=== PATIENT | female | born 1945 | race Caucasian/White ===

== ENCOUNTER 2019-03-05 03:06 | Emergency (ER) | payer MEDICARE ==
[~2019-03-05] VITALS: Ht 165.1 cm; Wt 56.5 kg
[2019-03-05 03:11] VITALS: BP 145/99
--- NOTE | 2019-03-05 03:34 | NUR ---
BLADDER SCANER RECORDED 60 ML FLUID IN THE BLADDER
[2019-03-05] MEDS ORDERED: IBAN150T15 PO (03:35)
[2019-03-05] MEDS ORDERED: ESOM40CA PO (03:35)
[2019-03-05] MEDS ORDERED: CELE200C PO (03:35)
--- NOTE | 2019-03-05 03:40 | NUR ---
Urine specimen collected and sent, pt reports that she feels better after voiding, urine is clear.
[2019-03-05 03:52] LABS: MICROSCOPIC AUTO
[2019-03-05 03:54] LABS: CULTURE INDICATED? YES
[2019-03-05] MEDS ORDERED: CEFDINIR 300 MG CAPSULE ONE (04:10)
[2019-03-05] MEDS ORDERED: CEFDINIR 300 MG CAPSULE PO ONE (04:30)
== END 2019-03-05 04:51 | disposition home or self-care (01) ==
LOC: ED 04:00
DX: N30.00 Acute cystitis without hematuria (principal); E78.5 Hyperlipidemia, unspecified; M81.0 Age-related osteoporosis without current pathological fracture
CPT/HCPCS: 81001; 87077; 87086; 87186; 99283

== ENCOUNTER 2019-07-04 14:14 | Inpatient (IN) | payer MEDICARE ==
[~2019-07-04] VITALS: Ht 167.6 cm; Wt 58.4 kg
[~2019-07-04 14:14] MED LIST: CELE200C PO; ESOM40CA PO; IBAN150T15 PO
[2019-07-04] MEDS ORDERED: SODIUM CHLORIDE 0.9% 1,000 ML IV ONE (14:29)
[2019-07-04] MEDS ORDERED: ONDANSETRON 2MG/ML, 2ML IVPush ONE (14:30)
[2019-07-04] MEDS ORDERED: SODIUM CHLORIDE FLUSH 10ML SYR IVF ONE (14:30)
[2019-07-04] MEDS ORDERED: KETOROLAC 30 MG/1 ML ONE (14:45)
[2019-07-04] MEDS ORDERED: ONDANSETRON 2MG/ML, 2ML ONE (14:45)
[2019-07-04 14:47] LABS: BASOPHILS # (AUTO) 0.01 x10^3/uL (0-0.1); BASOPHILS % (AUTO) 0 % (0-1); EOSINOPHILS # (AUTO) 0.17 x10^3/uL (0-0.4); EOSINOPHILS % (AUTO) 1 % (1-7); LYMPHOCYTES # (AUTO) 0.68 x10^3/uL (1-3.4); LYMPHOCYTES % (AUTO) 4 % (22-44); MD NO; MEAN CORPUSCULAR HEMOGLOBIN 33.5 pg (27.0-34.8); MEAN CORPUSCULAR HGB CONC 32.8 g/dL (32.4-35.8); MEAN CORPUSCULAR VOLUME 102.2 fL (80-100); MEAN PLATELET VOLUME 8.3 fL (7.4-10.4); MONOCYTES % (AUTO) 2 % (2-9); NEUTROPHILS # (AUTO) 15.74 x10^3/uL (1.8-6.8); NEUTROPHILS % (AUTO) 93 % (42-75); PLATELET COUNT 202 x10^3/uL (130-400); RED CELL DISTRIBUTION WIDTH 13.1 % (9.6-15.2)
[2019-07-04 14:56] LABS: ALBUMIN 3.9 g/dL (3.4-5.0); ANION GAP 7 mmol/L (5-15); CALCIUM 9.3 mg/dL (8.5-10.1); CHLORIDE 110 mmol/L (98-107)
--- NOTE | 2019-07-04 14:58 | NUR ---
PT TO ROOM 21 W/ FAMILY FOR C/O N/V/D X 5 DAYS WELL JOSE. STATES SHE HAS HAD 4 BM'S TODAY. AWARE OF NEED FOR STOOL SAMPLE. PT ALSO STATES SHE HAS ABD PAIN THROUGHOUT AT TIMES. CURRENTLY DENIES ABD PAIN. NO PAIN ON PALPATION. PT HAS FULL ROM OF NECK. PT RESTING ON GURNEY. NADN. VSS.
[2019-07-04 14:59] LABS: ALANINE AMINOTRANSFERASE 43 U/L (12-78); ALKALINE PHOSPHATASE 51 U/L (45-117); BILIRUBIN,TOTAL 0.7 mg/dL (0.2-1.0); TOTAL PROTEIN 8.1 g/dL (6.4-8.2)
[2019-07-04] MEDS ORDERED: KETOROLAC 30 MG/1 ML IVPush ONE (15:00)
--- NOTE | 2019-07-04 15:02 | NUR ---
REPORT FROM FROM TASK RN, CATHIE, ASSUMED CARE OF PATIENT AT THIS TIME.
[2019-07-04 15:15] LABS: RAPID INFLUENZA A Negative (Negative); RAPID INFLUENZA B Negative (Negative)
--- NOTE | 2019-07-04 16:22 | NUR ---
PATIENT TO BEDSIDE COMMODE, STAND-BY ASSIST. UA AND STOOL COLLECTED AND WALKED TO LAB. PATIENT BACK TO BED, [id number], NEW ORDERS FOR CT. PATIENT/FAMILY UPDATED ON POC. AWAITING RESULTS.
[2019-07-04 16:49] LABS: MICROSCOPIC NOT IND
[2019-07-04] MEDS ORDERED: OMNIPAQUE 350 MG/ML, 100ML BOTTLE ONE (16:51)
[2019-07-04 16:53] LABS: CULTURE INDICATED? NO
[2019-07-04 16:56] LABS: CLOSTRIDIUM DIFFICILE ANTIGEN NEGATIVE; CLOSTRIDIUM DIFFICILE TOXIN NEGATIVE (Negative)
--- NOTE | 2019-07-04 17:04 | NUR ---
PATIENT SITTING COMFORTABLY IN [facility]. VS UPDATED IN CHART, AWAITING CT RESULTS. NO NEEDS AT THIS TIME.
--- NOTE | 2019-07-04 17:19 | NUR ---
RESULTS BACK, CHART UP FOR RECHECK.
--- NOTE | 2019-07-04 18:03 | NUR ---
PATIENT SITTING IN [facility]. PATIENT TO BE ADMITTED, AWAITING ADMIT ORDER. VS UPDATED IN CHART.
[2019-07-04] MEDS ORDERED: AMPICILLIN/SULBACTAM 3 GM in SODIUM CHLORIDE 0.9% 100 ML IV ONE (18:30)
[2019-07-04] MEDS ORDERED: METRONIDAZOLE PMX 500MG/100ML 100 ML IV ONE (18:30)
--- NOTE | 2019-07-04 18:32 | NUR ---
SPOKE TO DR CHO REGARDING NEED FOR BLOOD CULTURES PRIOR TO ABX, BLOOD CULTURES TO BE ORDERED. AWAITING BED ASSIGNMENT.
--- NOTE | 2019-07-04 18:45 | NUR ---
BLOOD CULTURES X 2 DRAWN PRIOR TO ABX, ABX ADMINISTERED AT THIS TIME. AWAITING REPORT. PATIENT SITTING IN [facility].
--- NOTE | 2019-07-04 18:52 | NUR ---
REPORT TO RONIT BARNEY.
--- NOTE | 2019-07-04 19:00 | NUR ---
PATIENT TRANSFERRED/ADMITTED TO HOSPITAL BED UPSTAIRS. [facility].
[2019-07-04] MEDS: METRONIDAZOLE PMX 500MG/100ML 100 ML IV SCH (20:18)
[2019-07-04] MEDS: HEPARIN 5,000 UNITS/ML, 1ML SQ SCH (20:18)
[2019-07-04] MEDS: SODIUM CHLORIDE 0.9% 1,000 ML IV SCH (20:18)
[2019-07-04 20:35] VITALS: BP 105/72
[2019-07-04] MEDS: ACETAMINOPHEN 325 MG TABLET PO PRN (20:55)
[2019-07-04] MEDS: CEFTRIAXONE PMX 1GM/50ML 50 ML IV SCH (22:09)
[2019-07-05 00:48] VITALS: BP 97/68
[2019-07-05] MEDS: METRONIDAZOLE PMX 500MG/100ML 100 ML IV SCH ×3 (04:20→19:53)
[2019-07-05] MEDS: HEPARIN 5,000 UNITS/ML, 1ML SQ SCH ×3 (04:21→19:53)
[2019-07-05 05:37] LABS: BASOPHILS # (AUTO) 0.03 x10^3/uL (0-0.1); BASOPHILS % (AUTO) 0 % (0-1); EOSINOPHILS # (AUTO) 0.24 x10^3/uL (0-0.4); EOSINOPHILS % (AUTO) 4 % (1-7); LYMPHOCYTES # (AUTO) 1.63 x10^3/uL (1-3.4); LYMPHOCYTES % (AUTO) 25 % (22-44); MD NO; MEAN CORPUSCULAR HEMOGLOBIN 33.5 pg (27.0-34.8); MEAN CORPUSCULAR HGB CONC 32.4 g/dL (32.4-35.8); MEAN CORPUSCULAR VOLUME 103.2 fL (80-100); MEAN PLATELET VOLUME 8.8 fL (7.4-10.4); MONOCYTES # (AUTO) 0.35 x10^3/uL (0.2-0.8); MONOCYTES % (AUTO) 5 % (2-9); NEUTROPHILS # (AUTO) 4.35 x10^3/uL (1.8-6.8); NEUTROPHILS % (AUTO) 66 % (42-75); PLATELET COUNT 164 x10^3/uL (130-400); RED BLOOD COUNT 3.72 x10^6/uL (3.82-5.3); RED CELL DISTRIBUTION WIDTH 13.3 % (9.6-15.2)
[2019-07-05 05:43] LABS: ALBUMIN 2.9 g/dL (3.4-5.0); ANION GAP 6 mmol/L (5-15); CALCIUM 7.8 mg/dL (8.5-10.1); CHLORIDE 117 mmol/L (98-107)
[2019-07-05 05:55] LABS: ALANINE AMINOTRANSFERASE 30 U/L (12-78); ALKALINE PHOSPHATASE 39 U/L (45-117); BILIRUBIN,TOTAL 0.8 mg/dL (0.2-1.0); CREATININE 0.46 mg/dL (0.55-1.02); TOTAL PROTEIN 5.9 g/dL (6.4-8.2)
[2019-07-05] MEDS: ACETAMINOPHEN 325 MG TABLET PO PRN ×2 (06:14→15:54)
[2019-07-05] MEDS: PANTOPROZOLE 40MG TABLET PO SCH (07:34)
[2019-07-05] MEDS: SODIUM CHLORIDE 0.9% 1,000 ML IV SCH ×2 (07:34→15:52)
[2019-07-05 07:39] VITALS: BP 100/65
[2019-07-05] MEDS ORDERED: TEMPLATE NON-FORMULARY MED. (Ibandronate Sodium** (Boniva**) 1 TAB) PO SCH (09:00)
[2019-07-05 12:33] VITALS: BP 109/71
[2019-07-05] MEDS: DEXTROSE 5% 1,000 ML IV SCH (17:14)
[2019-07-05] MEDS ORDERED: ASA/APAP/ CAFFEINE TABLET ONE (18:14)
[2019-07-05] MEDS ORDERED: ASA/APAP/ CAFFEINE TABLET PO PRN (18:30)
[2019-07-05 19:16] VITALS: BP 142/87
[2019-07-05] MEDS: CEFTRIAXONE PMX 1GM/50ML 50 ML IV SCH (21:35)
[2019-07-05] MEDS: ONDANSETRON 2MG/ML, 2ML IVPush PRN (21:40)
[2019-07-06] MEDS ORDERED: PROMETHAZINE 25 MG/ML, 1ML IM ONE (01:00)
[2019-07-06 02:07] VITALS: BP 112/70
[2019-07-06] MEDS: METRONIDAZOLE PMX 500MG/100ML 100 ML IV SCH ×3 (03:55→20:25)
[2019-07-06] MEDS: HEPARIN 5,000 UNITS/ML, 1ML SQ SCH ×3 (03:55→20:25)
[2019-07-06 05:21] LABS: BASOPHILS # (AUTO) 0.01 x10^3/uL (0-0.1); BASOPHILS % (AUTO) 0 % (0-1); EOSINOPHILS # (AUTO) 0.05 x10^3/uL (0-0.4); EOSINOPHILS % (AUTO) 1 % (1-7); LYMPHOCYTES # (AUTO) 1.08 x10^3/uL (1-3.4); LYMPHOCYTES % (AUTO) 23 % (22-44); MD NO; MEAN CORPUSCULAR HEMOGLOBIN 33.5 pg (27.0-34.8); MEAN CORPUSCULAR HGB CONC 32.6 g/dL (32.4-35.8); MEAN CORPUSCULAR VOLUME 102.8 fL (80-100); MEAN PLATELET VOLUME 8.5 fL (7.4-10.4); MONOCYTES # (AUTO) 0.23 x10^3/uL (0.2-0.8); MONOCYTES % (AUTO) 5 % (2-9); NEUTROPHILS # (AUTO) 3.42 x10^3/uL (1.8-6.8); NEUTROPHILS % (AUTO) 71 % (42-75); PLATELET COUNT 156 x10^3/uL (130-400); RED BLOOD COUNT 3.69 x10^6/uL (3.82-5.3); RED CELL DISTRIBUTION WIDTH 12.9 % (9.6-15.2)
[2019-07-06 05:28] LABS: ANION GAP 8 mmol/L (5-15); CALCIUM 7.5 mg/dL (8.5-10.1); CHLORIDE 105 mmol/L (98-107)
[2019-07-06 05:42] LABS: ALANINE AMINOTRANSFERASE 28 U/L (12-78); ALKALINE PHOSPHATASE 37 U/L (45-117); BILIRUBIN,TOTAL 0.5 mg/dL (0.2-1.0); CREATININE 0.41 mg/dL (0.55-1.02); TOTAL PROTEIN 6.2 g/dL (6.4-8.2)
[2019-07-06] MEDS: DEXTROSE 5% 1,000 ML IV SCH (08:00)
[2019-07-06] MEDS: PANTOPROZOLE 40MG TABLET PO SCH (08:00)
[2019-07-06 08:28] VITALS: BP 112/73
[2019-07-06] MEDS ORDERED: SODIUM CHLORIDE 0.9% 1,000 ML IV SCH (10:00)
[2019-07-06] MEDS ORDERED: POTASSIUM CHLORIDE 40 MEQ in SODIUM CHLORIDE 0.9% 500 ML IV ONE ×2 (10:00→15:00)
[2019-07-06] MEDS ORDERED: MAGNESIUM SULFATE 4 GM in SODIUM CHLORIDE 0.9% 100 ML IV ONE (13:00)
[2019-07-06] MEDS ORDERED: POTASSIUM PHOSPHATE 44 MEQ in SODIUM CHLORIDE 0.9% 500 ML IV SCH (13:00)
[2019-07-06] MEDS ORDERED: MAGNESIUM SULFATE PMX 4GM/100M 100 ML IV ONE (13:00)
[2019-07-06 13:12] VITALS: BP 124/77
[2019-07-06 18:53] VITALS: BP 133/84
[2019-07-06] MEDS: ONDANSETRON 2MG/ML, 2ML IVPush PRN (19:23)
[2019-07-06] MEDS: CEFTRIAXONE PMX 1GM/50ML 50 ML IV SCH (21:36)
[2019-07-06] MEDS: SODIUM CHLORIDE 0.9% 1,000 ML IV SCH (22:17)
[2019-07-07 00:38] VITALS: BP 135/81
[2019-07-07] MEDS: HEPARIN 5,000 UNITS/ML, 1ML SQ SCH ×3 (05:03→20:01)
[2019-07-07] MEDS: METRONIDAZOLE PMX 500MG/100ML 100 ML IV SCH ×3 (05:03→23:58)
[2019-07-07 07:48] LABS: ANION GAP 8 mmol/L (5-15); CALCIUM 7.7 mg/dL (8.5-10.1); CHLORIDE 111 mmol/L (98-107); CREATININE 0.33 mg/dL (0.55-1.02)
[2019-07-07] MEDS: SODIUM CHLORIDE 0.9% 1,000 ML IV SCH ×2 (08:00→15:52)
[2019-07-07 08:02] VITALS: BP 112/72
[2019-07-07] MEDS ORDERED: POTASSIUM PHOSPHATE 44 MEQ in SODIUM CHLORIDE 0.9% 500 ML IV ONE (08:30)
[2019-07-07] MEDS: PANTOPROZOLE 40MG TABLET PO SCH (09:08)
[2019-07-07 13:57] VITALS: BP 114/74
[2019-07-07] MEDS ORDERED: POTASSIUM PHOSPHATE 22 MEQ in SODIUM CHLORIDE 0.9% 500 ML IV ONE (17:00)
[2019-07-07] MEDS: MAGNESIUM SULFATE PMX 2GM/50ML 50 ML IV ONE ×2 (17:20→18:27)
[2019-07-07] MEDS: POTASSIUM CHLORIDE 20 MEQ TAB.ER.PRT PO SCH ×2 (18:27→20:01)
[2019-07-07 18:45] VITALS: BP 139/90
[2019-07-07] MEDS: ONDANSETRON 2MG/ML, 2ML IVPush PRN (20:11)
[2019-07-07] MEDS: CEFTRIAXONE PMX 1GM/50ML 50 ML IV SCH (20:57)
[2019-07-08 00:27] VITALS: BP 120/80
[2019-07-08] MEDS: ONDANSETRON 2MG/ML, 2ML IVPush PRN (00:43)
[2019-07-08] MEDS: HEPARIN 5,000 UNITS/ML, 1ML SQ SCH (04:07)
[2019-07-08] MEDS: SODIUM CHLORIDE 0.9% 1,000 ML IV SCH (04:08)
[2019-07-08 05:58] LABS: ANION GAP 6 mmol/L (5-15); CALCIUM 8.3 mg/dL (8.5-10.1); CHLORIDE 110 mmol/L (98-107)
[2019-07-08 07:27] VITALS: BP 111/72
[2019-07-08] MEDS: PANTOPROZOLE 40MG TABLET PO SCH (07:42)
[2019-07-08] MEDS: METRONIDAZOLE PMX 500MG/100ML 100 ML IV SCH (07:42)
[2019-07-08] MEDS ORDERED: METR500T PO (08:56)
[2019-07-08] MEDS ORDERED: LACT1TAB13 PO (08:56)
[2019-07-08] MEDS ORDERED: ONDA4TAB13 SL (08:56)
[2019-07-08] MEDS ORDERED: CEFD300C37 PO (08:56)
[2019-07-08] MEDS ORDERED: metroNIDAZOLE 500 MG TABLET PO SCH (09:00)
[2019-07-08] MEDS ORDERED: CEFDINIR 300 MG CAPSULE PO SCH (09:00)
== END 2019-07-08 12:14 | disposition home or self-care (01) | DRG 871 ==
LOC: ED 17:57 → EDIP 18:09 → 3N 19:01 → DCLOUNGE 07-08 12:04
PROVIDERS: ADMIT Family Medicine; ATTEND Internal Medicine
DX: A41.9 Sepsis, unspecified organism (principal); J98.59 Other diseases of mediastinum, not elsewhere classified; A09 Infectious gastroenteritis and colitis, unspecified; D75.89 Other specified diseases of blood and blood-forming organs; E78.5 Hyperlipidemia, unspecified; E83.39 Other disorders of phosphorus metabolism; E83.42 Hypomagnesemia; E87.6 Hypokalemia; Z87.891 Personal history of nicotine dependence; M81.0 Age-related osteoporosis without current pathological fracture
CPT/HCPCS: 36415; 74177; 80048; 80053; 81003; 82607; 82962; 83605; 83690; 83735; 84100; 84443; 85025; 87040; 87046; 87324; 87400; 89055; 93005; 96361; 96374; 96375; 99285; G0378; J0295; J0696; J1644; J1885; J2405; J2550; J3480; J7070; Q9967; J3475; J7030; J7040

== ENCOUNTER 2019-07-24 20:37 | Emergency (ER) ==
[~2019-07-24] VITALS: Ht 165.1 cm; Wt 55.9 kg
[~2019-07-24 20:37] MED LIST changes: +CEFD300C37 PO; +LACT1TAB13 PO; +METR500T PO; +ONDA4TAB13 SL
--- NOTE | 2019-07-24 21:03 | NUR ---
RN to bedside, patient in gown in room. Daughter at bedside translating for patient relates that patient needs to use the bathroom. Given abdominal pain reviewed clean catch instructions. Patient's daughter verbalized understanding. Patient ambulated steadily to bathroom under own power. Will assess on return to bathroom.
[2019-07-24] MEDS ORDERED: MAALOX/HYOSCYAMINE/LIDOCAINE 45 ML BTL PO ONE (21:30)
[2019-07-24] MEDS ORDERED: FAMOTIDINE 20 MG/2 ML IV ONE (21:30)
[2019-07-24] MEDS ORDERED: SODIUM CHLORIDE FLUSH 10ML SYR IVF ONE (21:30)
[2019-07-24] MEDS ORDERED: MAALOX/HYOSCYAMINE/LIDOCAINE 45 ML BTL ONE (21:35)
[2019-07-24] MEDS ORDERED: FAMOTIDINE 20 MG TABLET ONE (21:35)
[2019-07-24 21:45] LABS: BASOPHILS # (AUTO) 0.03 x10^3/uL (0-0.1); BASOPHILS % (AUTO) 1 % (0-1); EOSINOPHILS # (AUTO) 0.15 x10^3/uL (0-0.4); EOSINOPHILS % (AUTO) 2 % (1-7); LYMPHOCYTES # (AUTO) 2.12 x10^3/uL (1-3.4); LYMPHOCYTES % (AUTO) 35 % (22-44); MD NO; MEAN CORPUSCULAR HEMOGLOBIN 33.9 pg (27.0-34.8); MEAN CORPUSCULAR VOLUME 102.7 fL (80-100); MEAN PLATELET VOLUME 7.8 fL (7.4-10.4); MONOCYTES # (AUTO) 0.46 x10^3/uL (0.2-0.8); MONOCYTES % (AUTO) 8 % (2-9); NEUTROPHILS # (AUTO) 3.27 x10^3/uL (1.8-6.8); NEUTROPHILS % (AUTO) 54 % (42-75); PLATELET COUNT 244 x10^3/uL (130-400); RED BLOOD COUNT 4.18 x10^6/uL (3.82-5.3)
[2019-07-24 21:58] LABS: ALANINE AMINOTRANSFERASE 44 U/L (12-78); ALBUMIN 3.7 g/dL (3.4-5.0); ANION GAP 5 mmol/L (5-15); CALCIUM 9.2 mg/dL (8.5-10.1); CHLORIDE 107 mmol/L (98-107); CREATININE 0.61 mg/dL (0.55-1.02)
[2019-07-24 22:01] LABS: ALKALINE PHOSPHATASE 43 U/L (45-117); BILIRUBIN,TOTAL 0.4 mg/dL (0.2-1.0); TOTAL PROTEIN 7.9 g/dL (6.4-8.2)
[2019-07-25 00:04] VITALS: BP 149/98
[2019-07-25] MEDS ORDERED: RANI-467 PO (14:52)
[2019-07-25] MEDS ORDERED: FAMO-79 PO (14:52)
[2019-07-25] MEDS ORDERED: LANS15CA5 PO (14:52)
== END 2019-07-25 00:24 | disposition home or self-care (01) ==
LOC: ED 22:07
DX: R10.13 Epigastric pain (principal)
CPT/HCPCS: 36415; 76700; 80053; 83605; 83690; 85025; 93005; 99284

== ENCOUNTER 2019-07-25 14:04 | Inpatient (IN) | payer MEDICARE ==
[~2019-07-25] VITALS: Ht 157.5 cm; Wt 56.6 kg
[2019-07-25] MEDS ORDERED: SODIUM CHLORIDE FLUSH 10ML SYR IVF ONE ×2 (14:30→15:00)
--- NOTE | 2019-07-25 14:35 | NUR ---
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
--- NOTE | 2019-07-25 14:47 | NUR ---
PT HERE WITH C/O SEVERE EPIGASTRIC PAIN, STATES SHE WAS SEEN HERE LAST NIGHT FOR SAME THING. PT STATES SHE FELT OK AFTER SHE LEFT BUT THIS MORNING FELT WORSE. PT AAO X 4, ROOM AIR, DRESSED IN GOWN AND ATTACHED TO MONITOR. CALL LIGHT WITHIN REACH AND SIDERAIL X [address] MD AT BEDSIDE.
[2019-07-25] MEDS ORDERED: LANS15CA5 PO (14:52)
[2019-07-25] MEDS ORDERED: FAMO-79 PO (14:52)
[2019-07-25] MEDS ORDERED: RANI-467 PO (14:52)
--- NOTE | 2019-07-25 14:52 | NUR ---
MED REC COMPLETED.
[2019-07-25] MEDS ORDERED: SODIUM CHLORIDE 0.9% 1,000 ML IV ONE (14:56)
[2019-07-25] MEDS ORDERED: ONDANSETRON 2MG/ML, 2ML IVPush ONE (15:00)
[2019-07-25] MEDS ORDERED: MORPHINE SULFATE 4 MG/ML, 1ML IVPush PRN (15:00)
--- NOTE | 2019-07-25 15:07 | NUR ---
PT EDUCATED ON NPO STATUS AND NEED FOR BLOOD WORK, PT AGREEABLE AND LAB NOTIFIED.
--- NOTE | 2019-07-25 15:24 | NUR ---
PIV ESTABLISHED BY THIS RN. LAB AT BEDSIDE FOR LAB DRAW.
[2019-07-25] MEDS ORDERED: MORPHINE SULFATE 4 MG/ML, 1ML ONE (15:26)
[2019-07-25] MEDS ORDERED: ONDANSETRON 2MG/ML, 2ML ONE (15:26)
--- NOTE | 2019-07-25 15:27 | NUR ---
PT MEDICATED PER ORDERS.
[2019-07-25 15:28] LABS: BASOPHILS # (AUTO) 0.02 x10^3/uL (0-0.1); BASOPHILS % (AUTO) 0 % (0-1); EOSINOPHILS % (AUTO) 2 % (1-7); LYMPHOCYTES # (AUTO) 1.52 x10^3/uL (1-3.4); LYMPHOCYTES % (AUTO) 23 % (22-44); MD NO; MEAN CORPUSCULAR HEMOGLOBIN 33.6 pg (27.0-34.8); MEAN CORPUSCULAR HGB CONC 33.1 g/dL (32.4-35.8); MEAN CORPUSCULAR VOLUME 101.5 fL (80-100); MEAN PLATELET VOLUME 8.1 fL (7.4-10.4); MONOCYTES # (AUTO) 0.28 x10^3/uL (0.2-0.8); MONOCYTES % (AUTO) 4 % (2-9); NEUTROPHILS # (AUTO) 4.79 x10^3/uL (1.8-6.8); NEUTROPHILS % (AUTO) 71 % (42-75); PLATELET COUNT 213 x10^3/uL (130-400); RED BLOOD COUNT 4.55 x10^6/uL (3.82-5.3); RED CELL DISTRIBUTION WIDTH 14.2 % (9.6-15.2)
--- NOTE | 2019-07-25 15:28 | NUR ---
UA SENT TO LAB.
[2019-07-25 15:36] LABS: ALBUMIN 3.9 g/dL (3.4-5.0); ANION GAP 8 mmol/L (5-15); CALCIUM 9.2 mg/dL (8.5-10.1); CHLORIDE 108 mmol/L (98-107)
[2019-07-25 15:45] LABS: ALANINE AMINOTRANSFERASE 43 U/L (12-78); ALKALINE PHOSPHATASE 46 U/L (45-117); BILIRUBIN,TOTAL 0.7 mg/dL (0.2-1.0); CREATININE 0.54 mg/dL (0.55-1.02); TOTAL PROTEIN 7.9 g/dL (6.4-8.2)
[2019-07-25 16:02] LABS: MICROSCOPIC NOT IND
[2019-07-25 16:07] LABS: CULTURE INDICATED? NO
--- NOTE | 2019-07-25 16:37 | NUR ---
AT BEDSIDE FOR REASSESSMENT.
--- NOTE | 2019-07-25 17:28 | NUR ---
DR. PERALES AT BEDSIDE FOR ASSESSMENT.
--- NOTE | 2019-07-25 18:30 | NUR ---
THIS RN SPOKE WITH CT REGARDING PIV AND CT WITH CONTRAST, CT OK CURRENT PIV, PT TO ALSO DRINK ORAL CONTRAST.
--- NOTE | 2019-07-25 19:16 | NUR ---
PT TOLERATED ORAL CONTRAST. PT TAKEN TO CT.
[2019-07-25] MEDS ORDERED: OMNIPAQUE 350 MG/ML, 100ML BOTTLE ONE (19:44)
--- NOTE | 2019-07-25 19:51 | NUR ---
PT BACK FROM CT.
[2019-07-25] MEDS ORDERED: ONDANSETRON 2MG/ML, 2ML IVPush PRN (20:00)
--- NOTE | 2019-07-25 20:04 | NUR ---
DR. PERALES AT BEDSIDE FOR REASSESSMENT.
--- NOTE | 2019-07-25 20:08 | NUR ---
REPORT GIVEN TO RONIT CARDOSO. CARE TRANSFERRED AT THIS TIME.
--- NOTE | 2019-07-25 20:17 | NUR ---
report from RONIT Murry. pt resting in room. no needs expressed. all results back at this time. chart up for recheck.
[2019-07-25] MEDS ORDERED: FAMOTIDINE 20 MG/2 ML ONE (20:44)
[2019-07-25] MEDS: FAMOTIDINE 20 MG/2 ML IVPush SCH (20:50)
--- NOTE | 2019-07-25 20:55 | NUR ---
pt medicated per oct. vss. plan to admit. awaiting room assignment.
--- NOTE | 2019-07-25 21:18 | NUR ---
REPORT TO RONIT GRULLON. PT READY FOR TRANSPORT.
[2019-07-25 21:45] VITALS: BP 146/90
[2019-07-25] MEDS: D5%-0.45NACL+KCL 20MEQ 1,000 ML IV SCH (22:54)
[2019-07-26 02:02] VITALS: BP 109/63
[2019-07-26 05:16] LABS: CHLORIDE 110 mmol/L (98-107)
[2019-07-26 05:22] LABS: ANION GAP 5 mmol/L (5-15); CALCIUM 8.5 mg/dL (8.5-10.1); CREATININE 0.52 mg/dL (0.55-1.02)
[2019-07-26 05:25] LABS: BASOPHILS # (AUTO) 0.01 x10^3/uL (0-0.1); BASOPHILS % (AUTO) 0 % (0-1); EOSINOPHILS # (AUTO) 0.12 x10^3/uL (0-0.4); EOSINOPHILS % (AUTO) 2 % (1-7); LYMPHOCYTES # (AUTO) 1.69 x10^3/uL (1-3.4); LYMPHOCYTES % (AUTO) 35 % (22-44); MD NO; MEAN CORPUSCULAR HEMOGLOBIN 33.6 pg (27.0-34.8); MEAN CORPUSCULAR HGB CONC 33.1 g/dL (32.4-35.8); MEAN CORPUSCULAR VOLUME 101.6 fL (80-100); MEAN PLATELET VOLUME 8.2 fL (7.4-10.4); MONOCYTES # (AUTO) 0.31 x10^3/uL (0.2-0.8); MONOCYTES % (AUTO) 6 % (2-9); NEUTROPHILS # (AUTO) 2.77 x10^3/uL (1.8-6.8); NEUTROPHILS % (AUTO) 57 % (42-75); PLATELET COUNT 197 x10^3/uL (130-400); RED BLOOD COUNT 3.76 x10^6/uL (3.82-5.3); RED CELL DISTRIBUTION WIDTH 13.9 % (9.6-15.2)
[2019-07-26] MEDS: D5%-0.45NACL+KCL 20MEQ 1,000 ML IV SCH ×3 (05:28→22:48)
[2019-07-26 06:45] VITALS: BP 100/62
[2019-07-26] MEDS: FAMOTIDINE 20 MG/2 ML IVPush SCH (08:07)
[2019-07-26] MEDS ORDERED: SUCCINYLCHOLINE 20 MG/ML, 10ML ONE (12:21)
[2019-07-26] MEDS ORDERED: PROPOFOL 10 MG/ML, 20ML ONE (12:21)
[2019-07-26] MEDS ORDERED: HYDROmorphone 2 MG/ML, 1ML IVPush PRN (13:00)
[2019-07-26] MEDS ORDERED: MEPERIDINE/PF 25MG/0.5ML IVPush PRN (13:00)
[2019-07-26] MEDS ORDERED: ACETAMINOPHEN 325 MG TABLET PO PRN (13:00)
[2019-07-26] MEDS ORDERED: KETOROLAC 30 MG/1 ML IV PRN (13:00)
[2019-07-26] MEDS ORDERED: DIAZEPAM 5 MG/ML, 2ML IVPush PRN (13:00)
[2019-07-26] MEDS ORDERED: FENTANYL PF 100 MCG/2ML IV PRN (13:00)
[2019-07-26] MEDS ORDERED: ALBUTEROL SULFATE 2.5 MG/3 ML NPPB PRN (13:00)
[2019-07-26] MEDS ORDERED: OXYcodone 5 MG/5 ML ORAL.SOL UDC PO PRN (13:00)
[2019-07-26] MEDS ORDERED: LABETALOL 5MG/ML, 20ML IV PRN (13:00)
[2019-07-26] MEDS ORDERED: hydrALAzine 20 MG/ML, 1ML IV PRN (13:00)
[2019-07-26] MEDS ORDERED: PROMETHAZINE 25 MG/ML, 1ML IV PRN (13:00)
[2019-07-26 14:10] VITALS: BP 155/89
[2019-07-26 19:33] VITALS: BP 144/90
[2019-07-26 23:39] VITALS: BP 132/86
[2019-07-27] MEDS: morphine SULFATE 10 MG/ML, 1ML IVPush PRN ×2 (00:51→02:35)
[2019-07-27 03:25] LABS: CLOSTRIDIUM DIFFICILE ANTIGEN POSITIVE; CLOSTRIDIUM DIFFICILE TOXIN NEGATIVE (Negative)
[2019-07-27 04:00] VITALS: BP 137/81
[2019-07-27] MEDS: D5%-0.45NACL+KCL 20MEQ 1,000 ML IV SCH (05:26)
[2019-07-27 07:25] VITALS: BP 154/86
[2019-07-27] MEDS: FAMOTIDINE 20 MG/2 ML IVPush SCH (08:18)
[2019-07-27] MEDS ORDERED: OXYcodone 5 MG/5 ML ORAL.SOL UDC PO PRN (09:00)
[2019-07-27 09:01] VITALS: BP 111/77
[2019-07-27 12:46] VITALS: BP 124/85
[2019-07-27] MEDS: OXYcodone 5 MG/5 ML ORAL.SOL UDC PO PRN ×3 (16:38→23:07)
[2019-07-27 20:16] VITALS: BP 116/81
[2019-07-28 04:00] VITALS: BP 108/68
[2019-07-28] MEDS: FAMOTIDINE 20 MG/2 ML IVPush SCH (07:55)
[2019-07-28 08:32] VITALS: BP 108/77
[2019-07-28] MEDS: VANCOMYCIN 50 MG/ML ORAL SUSP PO SCH ×3 (12:15→21:56)
[2019-07-28 14:37] VITALS: BP 112/80
[2019-07-28 20:08] VITALS: BP 112/80
[2019-07-28] MEDS: OXYcodone 5 MG/5 ML ORAL.SOL UDC PO PRN (20:36)
[2019-07-29 03:23] VITALS: BP 98/68
[2019-07-29] MEDS ORDERED: FAMOTIDINE 20 MG TABLET PO SCH (09:00)
[2019-07-29] MEDS: VANCOMYCIN 50 MG/ML ORAL SUSP PO SCH (09:04)
[2019-07-29 09:22] VITALS: BP 118/82
[2019-07-29] MEDS ORDERED: VANC125C11 PO (10:06)
== END 2019-07-29 10:21 | disposition home or self-care (01) | DRG 920 ==
LOC: ED 17:47 → EDIP 19:58 → 4NE 21:30
PROVIDERS: ADMIT Family Medicine; ATTEND Family Medicine
PROC: 0DBE8ZX Excision of Large Intestine, Via Natural or Artificial Opening Endoscopic, Diagnostic (ICD-10-PCS; 2019-07-26)
PROC: 0DBE8ZZ Excision of Large Intestine, Via Natural or Artificial Opening Endoscopic (ICD-10-PCS; principal; 2019-07-26 12:21)
DX: T85.79XA Infection and inflammatory reaction due to other internal prosthetic devices, implants and grafts, initial encounter (principal); K56.699 Other intestinal obstruction unspecified as to partial versus complete obstruction; A04.72 Enterocolitis due to Clostridium difficile, not specified as recurrent; K44.9 Diaphragmatic hernia without obstruction or gangrene; E78.5 Hyperlipidemia, unspecified; K29.00 Acute gastritis without bleeding; M81.0 Age-related osteoporosis without current pathological fracture; Z91.5 Personal history of self-harm; Y83.2 Surgical operation with anastomosis, bypass or graft as the cause of abnormal reaction of the patient, or of later complication, without mention of misadventure at the time of the procedure; Y92.89 Other specified places as the place of occurrence of the external cause
CPT/HCPCS: 36415; 71260; 74177; 80048; 80053; 81003; 83690; 85025; 87324; 87493; 88305; 93005; 96361; 96374; 96375; 99285; G0378; J2405; J2704; J3370; Q9967; J0330; J2270; J3480; J3490; J7030

== ENCOUNTER → 2019-08-09 | Outpatient (CLI) | payer MEDICARE ==
[~2019-08-09] MED LIST changes: +FAMO-79 PO; +LANS15CA5 PO; +RANI-467 PO; +VANC125C11 PO
== END | disposition home or self-care (01) ==
LOC: CFH 12:19
PROVIDERS: ATTEND Family Medicine
CPT/HCPCS: 77080

== ENCOUNTER 2019-08-18 12:23 | Emergency (ER) | payer MEDICARE ==
[~2019-08-18] VITALS: Ht 165.1 cm; Wt 55.0 kg
--- NOTE | 2019-08-18 14:59 | NUR ---
PT IN ROOM FROM [facility], PT SPEAKS ONLY [place]. 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 PT PROVIDED UA. IN GOWN. PT HAS CO OF ABDOMINAL PAIN.
[2019-08-18 15:17] LABS: MICROSCOPIC INDICATED
--- NOTE | 2019-08-18 15:24 | NUR ---
GIVEN WARM BLANKET.
[2019-08-18 15:25] LABS: CULTURE INDICATED? NO
[2019-08-18] MEDS ORDERED: MORPHINE SULFATE 4 MG/ML, 1ML ONE (15:47)
[2019-08-18] MEDS ORDERED: ONDANSETRON 2MG/ML, 2ML ONE (15:47)
[2019-08-18] MEDS ORDERED: DICYCLOMINE 10 MG/ML, 2ML ONE (15:48)
[2019-08-18 15:51] LABS: BASOPHILS # (AUTO) 0.02 x10^3/uL (0-0.1); BASOPHILS % (AUTO) 0 % (0-1); EOSINOPHILS # (AUTO) 0.04 x10^3/uL (0-0.4); EOSINOPHILS % (AUTO) 1 % (1-7); LYMPHOCYTES # (AUTO) 1.03 x10^3/uL (1-3.4); LYMPHOCYTES % (AUTO) 12 % (22-44); MD NO; MEAN CORPUSCULAR HEMOGLOBIN 33.7 pg (27.0-34.8); MEAN CORPUSCULAR HGB CONC 32.7 g/dL (32.4-35.8); MEAN CORPUSCULAR VOLUME 103.1 fL (80-100); MEAN PLATELET VOLUME 8.4 fL (7.4-10.4); MONOCYTES # (AUTO) 0.29 x10^3/uL (0.2-0.8); MONOCYTES % (AUTO) 4 % (2-9); NEUTROPHILS # (AUTO) 7.11 x10^3/uL (1.8-6.8); NEUTROPHILS % (AUTO) 84 % (42-75); PLATELET COUNT 197 x10^3/uL (130-400); RED BLOOD COUNT 4.36 x10^6/uL (3.82-5.3)
[2019-08-18 15:59] LABS: ALANINE AMINOTRANSFERASE 33 U/L (12-78); ALBUMIN 3.7 g/dL (3.4-5.0); ANION GAP 5 mmol/L (5-15); CALCIUM 8.8 mg/dL (8.5-10.1); CHLORIDE 108 mmol/L (98-107); CREATININE 0.53 mg/dL (0.55-1.02)
[2019-08-18] MEDS ORDERED: SODIUM CHLORIDE 0.9% 1,000ML IVBOLUS ONE (16:00)
[2019-08-18] MEDS ORDERED: MORPHINE SULFATE 4 MG/ML, 1ML IVPush PRN (16:00)
[2019-08-18] MEDS ORDERED: DICYCLOMINE 10 MG/ML, 2ML IM ONE (16:00)
[2019-08-18] MEDS ORDERED: ONDANSETRON 2MG/ML, 2ML IVPush ONE (16:00)
[2019-08-18 16:01] LABS: ALKALINE PHOSPHATASE 58 U/L (45-117); BILIRUBIN,TOTAL 0.9 mg/dL (0.2-1.0); TOTAL PROTEIN 7.7 g/dL (6.4-8.2)
[2019-08-18 16:14] VITALS: BP 128/84
[2019-08-18] MEDS ORDERED: MAALOX/HYOSCYAMINE/LIDOCAINE 45 ML BTL PO ONE (16:30)
--- NOTE | 2019-08-18 16:47 | NUR ---
PT RESTING COMFORTABLE. NO NEEDS AT THIS TIME
[2019-08-18] MEDS ORDERED: MAALOX/HYOSCYAMINE/LIDOCAINE 45 ML BTL ONE (16:54)
--- NOTE | 2019-08-18 17:28 | NUR ---
DISCUSSED W THAT PATIENT IS DOING BETTER W LESS ABDOMINAL PAIN .
--- NOTE | 2019-08-18 17:54 | NUR ---
Patient/Caregiver given discharge instructions and they have confirmed that they understand the instructions. Patient ambulatory with steady gait.
--- NOTE | 2019-08-18 17:54 | NUR ---
MD AT BEDSIDE. WILL DC SOON. FAMILY TRANSLATING.
== END 2019-08-18 17:56 | disposition home or self-care (01) ==
LOC: ED 17:09
DX: R10.13 Epigastric pain (principal); R11.0 Nausea; Z90.89 Acquired absence of other organs
CPT/HCPCS: 36415; 74022; 80053; 81001; 83690; 85025; 96372; 96374; 96375; 99284; J0500; J2270; J2405; J7030

== ENCOUNTER → 2020-09-03 | Outpatient (CLI) | payer MEDICARE, MEDICAID ==
[~2020-09-03] MED LIST changes: +OMNIPAQUE 350 MG/ML, 100ML BOTTLE ONE
[2020-09-03 16:55] LABS: CREATININE 0.52 mg/dL (0.55-1.02)
== END | disposition home or self-care (01) ==
LOC: RAD 16:26
PROVIDERS: ATTEND Physician Assistant Medical
DX: K80.20 Calculus of gallbladder without cholecystitis without obstruction (principal); E11.9 Type 2 diabetes mellitus without complications
CPT/HCPCS: 36415; 74177; 82565; Q9967